=== PATIENT | male | born 1980 | race Native Hawaiian/Other Pacific Islander ===

== ENCOUNTER 2017-10-30 09:46 | Emergency (ER) | payer OTHER ==
[~2017-10-30] VITALS: Ht 177.8 cm; Wt 149.7 kg
[2017-10-30 11:46] LABS: PLATELET COUNT 283 K/uL (142-355)
[2017-10-30 11:53] LABS: POTASSIUM 4.3 mmol/L (3.6-5.2); SODIUM 131 mmol/L (136-145)
== END 2017-10-30 14:05 | disposition home or self-care (01) ==
LOC: ED 09:46
DX: J20.9 Acute bronchitis, unspecified (principal); S40.012A Contusion of left shoulder, initial encounter; S40.011A Contusion of right shoulder, initial encounter; S80.01XA Contusion of right knee, initial encounter; S90.32XA Contusion of left foot, initial encounter; W18.39XA Other fall on same level, initial encounter; Y92.89 Other specified places as the place of occurrence of the external cause
CPT/HCPCS: 80053; 81000; 85027; 96372; 99283; J0696; J1020; J1100; J1885

== ENCOUNTER 2020-12-28 18:53 | Emergency (ER) | payer OTHER ==
[~2020-12-28] VITALS: Ht 177.8 cm; Wt 104.3 kg
[2020-12-28 19:39] LABS: PLATELET COUNT 354 K/uL (142-355)
[2020-12-28 19:44] LABS: POTASSIUM 4.1 mmol/L (3.6-5.2)
[2020-12-28 23:10] VITALS: BP 124/68; TEMP 97.4
== END 2020-12-28 23:10 | disposition home or self-care (01) ==
LOC: ED 19:05
PROVIDERS: Family Medicine
DX: S00.83XA Contusion of other part of head, initial encounter (principal); S13.4XXA Sprain of ligaments of cervical spine, initial encounter; S39.012A Strain of muscle, fascia and tendon of lower back, initial encounter; S50.12XA Contusion of left forearm, initial encounter; S40.022A Contusion of left upper arm, initial encounter; R55 Syncope and collapse; V48.0XXA Car driver injured in noncollision transport accident in nontraffic accident, initial encounter; Y92.89 Other specified places as the place of occurrence of the external cause
CPT/HCPCS: 36415; 80053; 80307; 81000; 85027; 90715; 96372; 99283; J1885; Q9963